=== PATIENT | male | born 1970 | race Caucasian/White ===

== ENCOUNTER 2025-07-13 07:51 | Day surgery (SDC) | payer OTHER ==
[2025-07-13] VITALS (7 sets, daily range): BP systolic 127–139; BP diastolic 76–105
[~2025-07-13] VITALS: Ht 188 cm; Wt 94.9 kg
[~2025-07-13 07:51] MED LIST: AMLO10 PO; ATOR20 PO; Aspir 8181 MG PO; CARV6.25 PO; LOSARTAN POTAS100 M1 PO; OMEP20ER PO; VITAMIN B121000 MCG PO; VITAMIN D33000 UNIT PO
[2025-07-13] MEDS ORDERED: CeFAZolin Sodium 2,000 MG in NS 100 ML IV SCH (08:20)
--- NOTE | 2025-07-13 08:30 | NUR ---
AMBULATORY INTO [facility]. HISTORY AND ALLERGIES REVIEWED. PT REPORTS FEELING "ANXIOUS." LUNGS CLEAR-NO NOTED SOB-SATS>90% ON RA. BP 140'S/90'S. NPO STATUS CONFIRMED.PT GLASSES GIVEN TO HIS PAULINA. PT CLOTHING IN BELONGINGS BAG BELOW THE GURNEY. PAULINA IS PATIENT RIDE HOME TODAY.
[2025-07-13] MEDS ORDERED: Midazolam HCl 1MG / ML 2ML Vial IV ONE (09:05)
[2025-07-13] MEDS ORDERED: Midazolam HCl 1MG / ML 2ML Vial ONE (09:07)
[2025-07-13] MEDS ORDERED: Bupivacaine 0.5% HCl 5 MG/ML 30MLVIAL ONE (09:13)
[2025-07-13] MEDS ORDERED: FentaNYL Citrate 50 MCG/ML 2 ML Injection ONE (09:30)
[2025-07-13] MEDS ORDERED: Ketorolac Tromethamine 30mg Vial ONE (09:36)
[2025-07-13] MEDS ORDERED: Ondansetron HCl 2 MG / ML 2ML Vial ONE (09:38)
[2025-07-13] MEDS ORDERED: Dexamethasone Sod Phos 10 MG/ML 1ML VIAL ONE (09:38)
[2025-07-13] MEDS ORDERED: Sugammadex Sodium 200 MG/2ML SDV (100 MG/ML) ONE (09:57)
[2025-07-13] MEDS ORDERED: Albuterol 2.5 MG/3 ML VIAL INH PRN (10:00)
[2025-07-13] MEDS ORDERED: FentaNYL Citrate 50 MCG/ML 2 ML Injection IV PRN ×2 (10:00→10:05)
[2025-07-13] MEDS ORDERED: Ondansetron HCl 2 MG / ML 2ML Vial IV PRN (10:00)
[2025-07-13] MEDS ORDERED: HYDROmorphone HCl/Pf 1MG SYR IV PRN ×2 (10:00)
[2025-07-13] MEDS ORDERED: HYDROcodone 5-APAP 325 TAB PO PRN (10:35)
--- NOTE | 2025-07-13 11:21 | NUR ---
Discharge instructions reviewed with patient. Patient verbalizes understanding. Copy given to patient to take home. Dressing c/d/i. Prescription already picked up by . Patient States Post-Procedure ride home has been arranged. Discharged via wheelchair to private car for ride home.
== END 2025-07-13 11:25 | disposition home or self-care (01) ==
LOC: ORSCMMR 07:51 → ORD 09:00 → ORSCMMR 11:25
PROVIDERS: Surgery
PROC: 0WQF0ZZ Repair Abdominal Wall, Open Approach (ICD-10-PCS; principal; 2025-07-13 09:00)
DX: K42.9 Umbilical hernia without obstruction or gangrene (principal); D45 Polycythemia vera; I10 Essential (primary) hypertension; E78.5 Hyperlipidemia, unspecified; E83.110 Hereditary hemochromatosis; F90.9 Attention-deficit hyperactivity disorder, unspecified type; F41.1 Generalized anxiety disorder; Z79.82 Long term (current) use of aspirin; Z79.899 Other long term (current) drug therapy; Z87.891 Personal history of nicotine dependence
CPT/HCPCS: A9270; J0690; J1100; J1885; J2250; J2405; J2704; J3010; J7120